=== PATIENT | male | born 1990 | race Caucasian/White ===

== ENCOUNTER 2018-01-13 16:14 | Emergency (ER) | payer BC ==
--- NOTE | 2018-01-13 20:17 | Emergency Department Report ---
ED Headache HPI - General Chief Complaint: Headache Stated Complaint: HEADACHE Time Seen by Provider: 01/13/18 19:18 - History of Present Illness Initial Comments: 27-year-old male comes in for having headaches for 3 days. Patient states he's been taking Advil in the morning before going to work and after work and the headache comes back again. Patient reports that the headache had woke him up about 2 AM this morning. He reports that he usually gets up at 540. Patient reports that he is drinking plenty of water he denies any trauma. He does admit to vomiting this morning but no nausea. He reports that the headache is intermittent and is on the left temporal side. He last had Advil at 1300. He does admit to drinking alcohol and no smoking. He denies any past medical history currently takes no medications on a daily basis and has no known drug allergies and no primary care provider. Timing/Duration: other (3 days) Quality: moderate Head Injury Location: temporal Recent Head Trauma: no recent headache/trauma Associated Symptoms: fever/chills (subjective), nausea/vomiting. denies: nasal congestion, nasal drainage Allergies/Adverse Reactions: Allergies No Known Allergies Allergy (Unverified 01/25/14 08:36) Home Medications: Ambulatory Orders HYDROcodone/APAP 5-325 [[place] 5/325 mg] 1 each PO Q6HR PRN #20 tablet 01/25/14 Ibuprofen [Motrin] 600 mg PO Q8H PRN #50 tablet 01/25/14 Ondansetron [Zofran] 4 mg PO Q6HR PRN #20 tablet 01/25/14 Ibuprofen [Motrin 800 MG tab] 800 mg PO Q8HR PRN #30 tablet 01/13/18 ED Review of Systems ROS: Stated complaint: HEADACHE Other details as noted in HPI Constitutional: fever (subjective) Eyes: denies: eye pain, eye discharge, vision change ENT: denies: ear pain, throat pain Respiratory: denies: cough, shortness of breath, wheezing Cardiovascular: denies: chest pain, palpitations Gastrointestinal: vomiting (times one this morning) Genitourinary: denies: urgency, dysuria Musculoskeletal: denies: back pain, joint swelling, arthralgia Neurological: headache Psychiatric: denies: anxiety, depression Hematological/Lymphatic: denies: easy bleeding, easy bruising ED Past Medical Hx - Past Medical History Previous Medical History?: No - Social History Smoking Status: Never Smoker - Medications Home Medications: Home Medications Medication Instructions Recorded Confirmed Last Taken Type HYDROcodone/APAP 5-325 [[place] 1 each PO Q6HR PRN #20 tablet 01/25/14 Unknown Rx 5/325 mg] Ibuprofen [Motrin] 600 mg PO Q8H PRN #50 tablet 01/25/14 Unknown Rx Ondansetron [Zofran] 4 mg PO Q6HR PRN #20 tablet 01/25/14 Unknown Rx Ibuprofen [Motrin 800 MG tab] 800 mg PO Q8HR PRN #30 tablet 01/13/18 Unknown Rx ED Physical Exam - General Limitations: No Limitations - Expanded Neurological Exam Expanded Cranial nerves: EOM's Intact: Normal, Gag Reflex: Normal, Tongue Deviation: Normal, Nystagmus: Normal, Facial Sensation: Normal, Facial Palsy with Forehead Movement: Normal, Facial Palsy without Forehead Movement: Normal Cerebellar function: Finger to Nose: Normal, Heel to [place]: Normal, Romberg: Normal Upper motor neuron: Lex Neglect: Normal, Pronator Drift: Normal, Sensory Extinction: Normal Sensory exam: Upper Extremity Light Touch: Normal, Upper Extremity Pin Prick: Normal, Upper Extremity Temperature: Normal, UE 2 Point Discrimination: Normal, Lower Extremity Light Touch: Normal, Lower Extremity Pin Prick: Normal, Lower Extremity Temperature: Normal, LE 2 Point Discrimination: Normal Motor strength exam: RUE: 5, LUE: 5, RLE: 5, LLE: 5 Best Eye Response ([place]): (4) open spontaneously Best Motor Response ([place]): (6) obeys commands Best Verbal Response ([place]): (5) oriented [place] Total: 15 - Psychiatric Psychiatric exam: Present: normal affect, normal mood - Skin Skin exam: Present: warm, dry, intact, normal color. Absent: rash ED Course Vital Signs 01/13/18 16:18 Temperature 98.1 F Pulse Rate 84 Respiratory 16 Rate Blood Pressure 123/83 O2 Sat by Pulse 98 Oximetry ED Medical Decision Making - Radiology Data Radiology results: report reviewed CAT scan of head/brain Impression: Negative examination. - Medical Decision Making Patient's been evaluated by this provider fast track. I discussed the patient was doing CT of the head. Patient has no neural defects vital signs are stable. No headache at this time. Critical care attestation.: If time is entered above; I have spent that time in minutes in the direct care of this critically ill patient, excluding procedure time. ED Disposition Clinical Impression: Headache Qualifiers: Headache type: unspecified Headache chronicity pattern: acute headache Intractability: intractable Qualified Code(s): R51 - Headache Disposition: DC-01 TO HOME OR SELFCARE Is pt being admited?: No Does the pt Need Aspirin: No Condition: Stable Instructions: Acute Headache (ED) Additional Instructions: Your CT was negative. He can take ibuprofen for headache and please follow up with one of the neurologists if headaches continue or gets worse. Prescriptions: Ibuprofen [Motrin 800 MG tab] 800 mg PO Q8HR PRN #30 tablet PRN Reason: Pain Referrals: PRIMARY CAREMD [Primary Care Provider] - 3-5 Days KING CASEY MD [Staff Physician] - 3-5 Days NED HODGES MD [Staff Physician] - 3-5 Days SAMM MILLER MD [Staff Physician] - 3-5 Days KIMBERLY JOHN MD [Referring] - 3-5 Days Forms: Work/School Release Form(ED), Accompanied Note
[2018-01-13 22:55] VITALS: BP 124/80
--- NOTE | 2018-01-16 14:25 | Cat Scan Report ---
FINAL REPORT PROCEDURE: CT HEAD/BRAIN WO CON TECHNIQUE: Computerized tomography of the head was performed without contrast material. HISTORY: persistent [place] COMPARISON: No prior studies are available for comparison. FINDINGS: Brain: Brain density appears normal. No evidence of intracranial hemorrhage. No parenchymal hemorrhage, mass lesions or mass effect are seen. No abnormal extraxial fluid collects or masses are seen. Ventricles: Ventricles are normal size and are midline. Bone Windows: No evidence of skull fracture. Paranasal sinuses: Visualized portions appear clear. Mastoid air cells: Visualized portions appear clear. IMPRESSION: Negative examination
== END 2018-01-13 21:53 | disposition home or self-care (01) ==
LOC: ED 16:14
DX: R51 Headache (principal)
CPT/HCPCS: 70450